=== PATIENT | male | born 1985 | race Caucasian/White ===

== ENCOUNTER 2018-03-11 13:12 | Emergency (ER) | payer SELFPAY ==
[2018-03-11 13:43] VITALS: BP 141/88
[2018-03-11] MEDS ORDERED: OXYCODONE-ACETAMINOPHEN 5-325 MG TABLET PO ONE (14:21)
--- NOTE | 2018-03-11 14:24 | ER Document Report ---
ED Medical Screen (RME) - General Chief Complaint: Pelvic Pain Stated Complaint: TESTICLE PAIN Time Seen by Provider: 03/11/18 14:19 Mode of Arrival: Ambulatory Information source: Patient Notes: Patient is a 32-year-old male who presents with chief complaint of right testicular pain. Patient reports that he does have a previously diagnosed right inguinal hernia, states yesterday he was doing a lot of heavy lifting. Patient reports this morning the right testicle started having severe pain. Denies any other symptoms, denies any abdominal pain. Exam: Alert, oriented, somewhat distressed in appearance. Unable to examine testicle in triage. I have greeted and performed a rapid initial assessment of this patient. A comprehensive ED assessment and evaluation of the patient, analysis of test results and completion of the medical decision making process will be conducted by additional ED providers. Dictation of this chart was performed using voice recognition software; therefore, there may be some unintended grammatical errors. TRAVEL OUTSIDE OF THE [place] IN LAST 30 DAYS: No - Related Data Allergies/Adverse Reactions: No Known Allergies Allergy (Unverified 03/11/18 13:15) Past Medical History Renal/ Medical History: Denies: Hx Peritoneal Dialysis Physical Exam - Vital signs Vitals: Temp Pulse Resp BP Pulse Ox 98.0 F 92 16 141/88 H 97 03/11/18 13:42 03/11/18 13:42 03/11/18 13:42 03/11/18 13:42 03/11/18 13:42 Course - Vital Signs Vital signs: Temp Pulse Resp BP Pulse Ox 98.0 F 92 16 141/88 H 97 03/11/18 13:42 03/11/18 13:42 03/11/18 13:42 03/11/18 13:42 03/11/18 13:42
[2018-03-11 15:04] LABS: APPEARANCE,URINE CLEAR; BILIRUBIN,URINE NEGATIVE (NEGATIVE); COLOR,URINE YELLOW; GLUCOSE, URINE NEGATIVE (NEGATIVE); KETONES,URINE NEGATIVE (NEGATIVE); LEUKOCYTE ESTERASE,URINE NEGATIVE (NEGATIVE); NITRITE,URINE NEGATIVE (NEGATIVE); PROTEIN,URINE NEGATIVE (NEGATIVE); UROBILINOGEN,URINE NEGATIVE mg/dL (<2.0)
--- NOTE | 2018-03-11 15:55 | RADIOLOGY REPORT (SQ) ---
EXAM DESCRIPTION: U/S SCROTUM W/DOPPLER COMPLETED DATE/TIME: 03/11/2018 3:36 pm REASON FOR STUDY: right testicular pain COMPARISON: None. TECHNIQUE: Static and realtime samuels scale imaging of the scrotum and testes. Selected color Doppler and spectral images recorded to document blood flow. LIMITATIONS: None. FINDINGS: RIGHT: TESTICLE: Normal size, 3.9 x 2.7 x 2.4 cm in size. Normal echotexture. Normal blood flow. No mass. EPIDIDYMIS: Normal size. Diffuse increased color flow throughout the epididymis, question epididymit is. HYDROCELE OR VARICOCELE: No. HERNIA OR EXTRA-TESTICULAR MASS: No. OTHER: No other significant finding. LEFT: TESTICLE: Normal size, 4.4 x 2.7 x 2.3 cm in size. Normal echotexture. Normal blood flow. No mass. EPIDIDYMIS: Normal. HYDROCELE OR VARICOCELE: Large left varicocele HERNIA OR EXTRA-TESTICULAR MASS: No. OTHER: No other significant finding. IMPRESSION: No ultrasound evidence of testicular torsion Diffuse increased color flow through the normal size right epididymis. Question epididymitis Large left varicocele TECHNICAL DOCUMENTATION: JOB ID: [id number] [employer]- All Rights Reserved Reading location - IP/workstation name: [email or web address]
[2018-03-11] MEDS ORDERED: DOXYCYCLINE HYCLATE 100 MG TABLET PO ONE (16:28)
[2018-03-11] MEDS ORDERED: CEFTRIAXONE INJ 250 MG VIAL IM ONE (16:28)
[2018-03-11] MEDS ORDERED: HYDROCODONE/ACETAMINOPHEN 5-325 MG (6 TAB/ER DISP) PO PRN (16:56)
--- NOTE | 2018-03-11 16:56 | ER Document Report ---
ED GI/ - General Chief Complaint: Pelvic Pain Stated Complaint: TESTICLE PAIN Time Seen by Provider: 03/11/18 14:19 Mode of Arrival: Ambulatory Notes: Patient is a 32-year-old male who presents with chief complaint of right testicular pain. Patient reports that he does have a previously diagnosed right inguinal hernia, states yesterday he was doing a lot of heavy lifting. Patient reports this morning the right testicle started having severe pain. Denies any other symptoms, denies any abdominal pain. TRAVEL OUTSIDE OF THE [place] IN LAST 30 DAYS: No - Related Data Allergies/Adverse Reactions: No Known Allergies Allergy (Unverified 03/11/18 13:15) Past Medical History - General Information source: Patient - Social History Smoking Status: Current Every Day Smoker Frequency of alcohol use: Occasional Drug Abuse: None Family History: Reviewed & Not Pertinent Patient has suicidal ideation: No Patient has homicidal ideation: No - Medical History Medical History: Negative Renal/ Medical History: Denies: Hx Peritoneal Dialysis - Immunizations Immunizations up to date: Yes Review of Systems - Review of Systems Constitutional: No symptoms reported EENT: No symptoms reported Cardiovascular: No symptoms reported Respiratory: No symptoms reported Gastrointestinal: No symptoms reported Genitourinary: No symptoms reported Male Genitourinary: See HPI Musculoskeletal: No symptoms reported Skin: No symptoms reported Hematologic/Lymphatic: No symptoms reported Neurological/Psychological: No symptoms reported -: Yes All other systems reviewed and negative Physical Exam - Vital signs Vitals: Temp Pulse Resp BP Pulse Ox 98.0 F 92 16 141/88 H 97 03/11/18 13:42 03/11/18 13:42 03/11/18 13:42 03/11/18 13:42 03/11/18 13:42 - Notes Notes: PHYSICAL EXAMINATION: GENERAL: Well-appearing, well-nourished and in no acute distress. HEAD: Atraumatic, normocephalic. EYES: Pupils equal round and reactive to light, extraocular movements intact, sclera anicteric, conjunctiva are normal. ENT: Nares patent, oropharynx clear without exudates. Moist mucous membranes. NECK: Normal range of motion, supple without lymphadenopathy LUNGS: Breath sounds clear to auscultation bilaterally and equal. No wheezes rales or rhonchi. HEART: Regular rate and rhythm without murmurs ABDOMEN: Soft, nontender, nondistended abdomen. No guarding, no rebound. No masses appreciated. No abnormality noted to the external genitalia, positive cremasteric reflex. Musculoskeletal: Normal range of motion, no pitting or edema. No cyanosis. NEUROLOGICAL: Cranial nerves grossly intact. Normal speech, normal gait. Normal sensory, motor exams PSYCH: Normal mood, normal affect. SKIN: Warm, Dry, normal turgor, no rashes or lesions noted. Course - Re-evaluation Re-evalutation: Urinalysis is unremarkable. Chlamydia and gonorrhea testing are pending. Testicular ultrasound reveals left-sided varicocele and possible epididymitis. No torsion noted on x-ray. Patient will be treated with antibiotics and discharged home. Patient has chlamydia positive, I did try to call the patient with this information however was unable to reach him by phone. Patient was treated empirically. - Vital Signs Vital signs: Temp Pulse Resp BP Pulse Ox 98.0 F 92 16 141/88 H 97 03/11/18 13:42 03/11/18 13:42 03/11/18 13:42 03/11/18 13:42 03/11/18 13:42 - Laboratory Laboratory results interpreted by me: 03/11/18 17:04 Chlamydia DNA (PCR) DETECTED H Discharge - Discharge Clinical Impression: Epididymitis Condition: Stable Disposition: HOME, SELF-CARE Additional Instructions: Epididymitis You have epididymitis. This is an inflammation of the organ just behind the testicle, called the epididymis. It can be due to infection in the bladder or prostate. Many cases are simply inflammation and are not caused by germs. Epididymitis often develops after heavy lifting or vigorous exercise. Antibiotics and antiinflammatory medication are often prescribed. Elevation of the scrotum with a jock-strap or tight briefs will help with the pain. Pain medication may be required. Either cold packs or warm sitz baths can help with the pain -- ask your doctor which he recommends for your case. It may take 10 to 14 days until the pain is gone. Avoid heavy lifting during this time. Call the doctor or go to the hospital if you develop fever, increasing pain , or severe swelling, or if you fail to improve as expected. Please take medications as prescribed. Follow the above directions. I will call you if there are any abnormal results on urine gonorrhea and chlamydia testing. Prescriptions: Ketorolac Tromethamine [Toradol 10 mg Tablet] 10 mg PO Q6HP PRN #20 tablet PRN Reason: Doxycycline Hyclate 100 mg PO BID #14 capsule
[2018-03-11] MEDS ORDERED: LIDOCAINE 1% INJ-PF (10 MG/ML) 30 ML SDV INJ ONE (17:02)
[2018-03-11 18:47] LABS: CHLAM PCR DETECTED (NOT DETECT); GON PCR NOT DETECTED (NOT DETECT)
== END 2018-03-11 17:45 | disposition home or self-care (01) ==
LOC: ER 13:12
DX: N45.1 Epididymitis (principal); F17.200 Nicotine dependence, unspecified, uncomplicated
CPT/HCPCS: 99284; 96372; 81001; 87491; 87591; 76870; 93976; J3490; J0696